=== PATIENT | male | born 1980 | race Caucasian/White ===

== ENCOUNTER 2018-07-31 05:07 | Day surgery (SDC) | payer BC ==
[~2018-07-31] VITALS: Ht 175.3 cm; Wt 90.7 kg
[~2018-07-31 05:07] MED LIST: PERCOCET 10/3251 TA1 PO
[2018-07-31 06:14] VITALS: BP 127/93; Ht 175.3 cm; Wt 90.7 kg
[2018-07-31] MEDS ORDERED: OXYCODONE-APAP1 T10 PO (08:09)
[2018-07-31] MEDS ORDERED: DURICEF500 MG PO (08:09)
--- NOTE | 2018-07-31 10:27 | OP ---
PATIENT NAME: MARIAH PAZ MEDICAL RECORD: [id number] :78 LOCATION:[facility] AD[facility]ION DATE: SURGEON: ELIJAH RUTH DO DATE OF OPERATION: 07/31/2018 PROCEDURE PERFORMED: Right thumb radial collateral ligament repair. PREOPERATIVE DIAGNOSIS: Right thumb radial collateral ligament rupture. POSTOPERATIVE DIAGNOSIS: Right thumb radial collateral ligament rupture. INDICATIONS: Mr. Paz is a right-hand dominant 38-year-old male who sustained an injury to his right thumb months ago. He had problems with pain with it and started to notice a deformity. It was subluxing laterally and was seen. MRI was done and it was noted to have a radial collateral ligament rupture. This, due to the fact of the chronicity of this injury and he was not splinted right away as these usually heal, being treated nonoperatively in a thumb spica, but due to the fact it had been months ago, it did not scar down correctly. I informed him that due to that fact he probably needed a repair. He was aware of that and aware of the risks including damage to the radial sensory nerve in the area, need for further surgery, and re-rupture, infection and bleeding as well. He was okay with those risks and started to dealing with it and wanted something done surgically. 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 It was affecting his activities of daily living. He signed a consent. SURGEON: Elijah Ruht DO DESCRIPTION OF PROCEDURE: The patient was taken to the operative suite, laid in the supine position. The right upper extremity was prepped and draped in sterile fashion. Timeout was performed, everyone was in agreeance with the correct site, side, patient and procedure. DESCRIPTION OF PROCEDURE: The patient received 2 grams Ancef preoperatively. Once time-out was performed, the right upper extremity was exsanguinated with an Esmarch and tourniquet was inflated to 250 mmHg and was up for 27 minutes. Once the tourniquet had been inflated, the Esmarch was removed. A curvilinear incision was made on the dorsal radial side of the thumb. Careful incision was made over the trang and careful dissection was made down to the adductor aponeurosis. The radial sensory nerve was encountered and then retracted carefully. The adductor aponeurosis was incised with a knife and then the radial collateral ligament was encountered on the metacarpal side where the rupture was. The bone was then exposed at the distal aspect of the metacarpal, just proximal to the joint. A 1-0 JuggerKnot suture anchor was used, put into the bone and with 2-0 sutures on it and the sutures were ran through the radial collateral ligament and secured down to the bone thus making a very good repair. This was tested with stress on it and did not show any laxity with testing. The sutures were then cut and the adductor aponeurosis was closed with 4-0 Ethibond in an inverted interrupted fashion. The skin was then closed with 5-0 Monocryl in inverted interrupted fashion. Steri-Strips were placed on that. The tourniquet was then let down 27 minutes and the site was injected with 0.5% Marcaine 5 mL around the site. An Adaptic, 4 x 4, Webril was then placed on the thumb and the wrist and the hand and a thumb spica splint was placed on the patient secured in place with a 4-inch Kedar wrap. The patient was awakened and taken to recovery room in stable condition. OPERATIVE REPORT [id number] MARIAH PAZ COMPLICATIONS: None. GARLAND MAKER: None. BLOOD LOSS: Minimal. TRANSINT:[id number] Voice Confirmation ID: [id number] DOCUMENT ID: [id number] ELIJAH RUTH DO at 1027 CC: [id number] DICTATION DATE: 07/31/18813 DUPLICATING MACHINE OPERATOR: 07/31/[address] [facility] 07/31/18 [place] [id number] [place] [address]
== END 2018-07-31 09:52 | disposition home or self-care (01) ==
LOC: D.OPS 05:07 → D.PAN 07:00 → D.OPS 07:30 → D.PAN 07:30 → D.OPS 09:52
DX: S53.21XA Traumatic rupture of right radial collateral ligament, initial encounter (principal); X58.XXXA Exposure to other specified factors, initial encounter

== ENCOUNTER → 2018-09-29 13:02 | Outpatient (CLI) | payer BC ==
[2018-07-31 06:14] VITALS: BMI 29.6
[~2018-09-29 13:02] MED LIST changes: +DURICEF500 MG PO; +OXYCODONE-APAP1 T10 PO
== END | disposition home or self-care (01) ==
LOC: D.RAD 13:02
PROVIDERS: ATTEND Orthopaedic Surgery
DX: M25.512 Pain in left shoulder (principal)

== ENCOUNTER 2019-06-25 08:57 | Day surgery (SDC) | payer BC ==
[~2019-06-25] VITALS: Ht 175.3 cm; Wt 86.6 kg
[2019-06-25 10:23] VITALS: BP 126/84; Ht 175.3 cm; Wt 86.6 kg
[2019-06-25] MEDS ORDERED: PERCOCET 5-3251 TAB PO (14:22)
[2019-06-25] MEDS ORDERED: TORADOL10 MG PO (14:22)
--- NOTE | 2019-06-27 14:16 | OP ---
PATIENT NAME: MARIAH PAZ MEDICAL RECORD: [id number] :79 LOCATION:[facility] AD[facility]ION DATE: SURGEON: SHEMAR RUTH DO DATE OF OPERATION: 06/25/2019 PROCEDURE PERFORMED: Left shoulder arthroscopy with subacromial decompression, distal clavicle excision, labral debridement, and biceps tenodesis. PREOPERATIVE DIAGNOSES: Left shoulder pain, subacromial impingement, acromioclavicular joint arthritis, and SLAP tear. POSTOPERATIVE DIAGNOSES: Left shoulder pain, subacromial impingement, acromioclavicular joint arthritis, and SLAP tear. INDICATIONS: Mr. Paz is a 39-year-old male who has had left shoulder pain for quite some time. He got an MR arthrogram, which showed a SLAP tear as well as acromioclavicular joint arthritis and subacromial impingement. He is aware of the risks including infection, bleeding, damage to nerves or vessels, continued pain, loss of motion of the shoulder. He wants something to be done as he was tired of dealing with the pain. He signed the consent. SURGEON: Shemar Ruth DO DESCRIPTION OF PROCEDURE: The patient was taken to the operative suite, given a block by anesthesia in the preoperative area, given 2 grams Ancef and 100 mg clindamycin. He was laid in the right lateral decubitus position with the left shoulder up. The patient was sedated and LMA was placed. The left shoulder was then prepped and draped in sterile fashion. A timeout was performed and everyone was in agreement with correct side, site, patient and procedure and the procedure then began with insufflating the shoulder joint with 60 mL normal saline and the posterior portal with an 18-gauge spinal needle. This was then removed and the portal established with an 11-blade scalpel. Trocar was entered into the shoulder joint. Anterior portal was established and he was found an 11-blade scalpel and probe was brought in and the SLAP tear was seen from the 10 o'clock to 2 o'clock position and a burner was brought in and the bicep tenotomy was done at that point as well as a labral debridement, the rotator cuff was inspected and there were no tears seen in supraspinatus, infraspinatus, or subscapularis. There were no loose bodies in the joint inferiorly. Cartilage was in good shape. Subacromial space was then entered and lateral portal sites. An 11-blade scalpel and a shaver was brought in and a subacromial decompression was done with acromioplasty and the distal clavicle was removed, opening the AC joint out to approximately 7 mm. The rotator cuff was inspected on the bursal side as well. No tears were seen. Attention was then drawn to the anterior humerus where an incision was made and careful dissection was made down to the long head of the biceps tendon. This was taken out through the incision, whipstitched, and then a 2.9 JuggerKnot bicep anchor was used and the biceps tendon was whipstitched and then tied to the JuggerKnot loop and then it was tensioned down to the anterior humerus. This was then tied and cut and a free needle was used to coat the back of the tendon and this was cut and tied. The excess tendon and suture removal at that time. The site was irrigated and the incision was closed with 2-0 Vicryl interrupted fashion, 4-0 Monocryl in the skin and then covered in Dermabond. The portal sites were then closed with 4-0 Monocryl in inverted interrupted fashion. Dermabond, Telfa, and Tegaderm were placed on them. He was then awakened and taken to recovery in stable condition and put on a sling. OPERATIVE REPORT [id number] MARIAH PAZ COMPLICATIONS: None. BLOOD LOSS: Minimal. TRANSINT:[id number] Voice Confirmation ID: [id number] DOCUMENT ID: [id number] SHEMAR RUTH DO at 1416 CC: [id number] DICTATION DATE: 06/25/19 1436 MANUFACTURING TEST ENGINEER: 06/25/[address] [place] [address] 06/25/19 [id number] [place] [id number]
== END 2019-06-25 15:45 | disposition home or self-care (01) ==
LOC: D.OPS 08:57 → D.PAN 12:30 → D.OPS 13:30 → D.PAN 07-16 08:30
PROVIDERS: ATTEND Orthopaedic Surgery
DX: S43.432D Superior glenoid labrum lesion of left shoulder, subsequent encounter (principal); M25.512 Pain in left shoulder; M75.42 Impingement syndrome of left shoulder; M19.019 Primary osteoarthritis, unspecified shoulder; S83.221A Peripheral tear of medial meniscus, current injury, right knee, initial encounter; X58.XXXA Exposure to other specified factors, initial encounter

== ENCOUNTER 2019-07-16 08:40 | Day surgery (SDC) | payer BC ==
[~2019-07-16] VITALS: Ht 175.3 cm; Wt 90.7 kg
[~2019-07-16 08:40] MED LIST changes: +PERCOCET 5-3251 TAB PO; +TORADOL10 MG PO
[2019-07-16 10:36] VITALS: BP 124/87; Ht 175.3 cm; Wt 90.7 kg
[2019-07-16] MEDS ORDERED: TORADOL10 MG PO (14:13)
[2019-07-16] MEDS ORDERED: HYDROCODON-ACE1 EAC2 PO (14:13)
--- NOTE | 2019-07-17 08:52 | OP ---
PATIENT NAME: MARIAH PAZ MEDICAL RECORD: [id number] :78 LOCATION[facility] AD[facility] DATE: SURGEON: ELIJAH RUTH DO DATE OF OPERATION: 07/16/2019 PROCEDURE PERFORMED: Right knee medial meniscal repair. PREOPERATIVE DIAGNOSIS: Right knee medial meniscal tear. POSTOPERATIVE DIAGNOSIS: Right knee medial meniscal tear. INDICATIONS: Mr. Paz is a 39-year-old male who was running and slipped off a track and twisted his knee, felt a pop. He had some pain and ended up getting an MRI and it showed a posterior horn medial meniscal tear, horizontal and complex. He was informed that we could do nothing and it would make it worse and we can try to fix if it. If it was amenable to repair, we will trim it out. I told him I will try to fix best I could due to the fact that if it has trimmed it out he would have advancing arthritis in that knee and he is aware that as well as the risk of damage to nerves and vessels, need for further surgery, continued tearing of the meniscus, continued pain, locking, catching and popping and he signed a consent. SURGEON: Elijah Ruth DO DESCRIPTION OF PROCEDURE: The patient was taken to the operative suite, given 2 grams Ancef preoperatively. He was laid in supine position, given general anesthetic and LMA was placed. The right lower extremity was then prepped and draped in sterile fashion. Timeout was performed. Everyone was agreeance with correct site, side, patient, and procedure. I then injected approximately 3 mL of 0.25% Marcaine with epinephrine and anterior medial and lateral proposed portal sites. The lateral portal was then established with an 11-blade scalpel. Trocar was entered in the knee. Suprapatellar pouch inspected as well as the lateral and medial gutters. The knee was then flexed down and the medial portal was established with 18-guage spinal needle and 11-blade scalpel. Trocar was then brought in and the leg was brought to extension and valgus stressed and the tear was seen in the posterior horn of medial meniscus, it was a horizontal tear essentially through the full thickness of the meniscus. I then brought in a first jugular stitch and then 2 fast fixes repairing the meniscus and having trimmed some of it out. We got the ends together in the most peripheral portion with hopes that it would heal. We then cut all the suture and it was in a stable position when it was fixed. The ACL was inspected and seen to be in good position as well the lateral meniscus, there were no tears and the lateral cartilage was good as well. The water was then turned off and the suction turned on and the excess fluid removed from the knee. The portal sites were then closed with 4-0 Monocryl in an inverted interrupted fashion. Steri-Strips, Adaptic, 4 x 4's, ABD, Webril, Kedar wrap, BART hose stocking were then placed on the knee and placed hinged knee brace locked in extension. He was then awakened and taken to recovery in stable condition. BLOOD LOSS: Minimal. COMPLICATIONS: None. TRANSINT:[id number] Voice Confirmation ID: [id number] DOCUMENT ID: [id number] OPERATIVE REPORT [id number] MARIAH PAZ,ELIJAH Amaral DO at 0852 CC: [id number] DICTATION DATE: 07/16/19 1411 ION EXCHANGE OPERATOR: 07/16/19 2303 [facility] 07/16/19 [facility] [address] [place] [address]
== END 2019-07-16 16:00 | disposition home or self-care (01) ==
LOC: D.OPS 08:40
PROVIDERS: ATTEND Orthopaedic Surgery
DX: S83.241A Other tear of medial meniscus, current injury, right knee, initial encounter (principal); X58.XXXA Exposure to other specified factors, initial encounter; S43.432D Superior glenoid labrum lesion of left shoulder, subsequent encounter; M25.512 Pain in left shoulder; M79.644 Pain in right finger(s)

== ENCOUNTER 2020-09-13 12:16 | Day surgery (SDC) | payer BC ==
[~2020-09-13] VITALS: Ht 175.3 cm; Wt 90.9 kg
[~2020-09-13 12:16] MED LIST changes: +HYDROCODON-ACE1 EAC2 PO
[2020-09-13 14:13] VITALS: BP 114/81; Ht 175.3 cm; Wt 90.9 kg
--- NOTE | 2020-09-13 16:09 | NUR ---
DISCHARGE INSTRUCTIONS REVIEWED WITH PT AND COPY PROVIDED. ALSO PROVIDED LIST OF NSAIDS TO AVOID FOR 10-14 DAYS. PT VOICED UNDERSTANDING. IV DC'D WITH CATH TIP INTACT. PT GETTING DRESSED FOR DISCHARGE.
--- NOTE | 2020-09-13 16:14 | NUR ---
PT DISCHARGED VIA W/C, ACCOMPANIED BY THIS NURSE, TO POV WITH SPOUSE DRIVING. DC PACKET WITH PT.
--- NOTE | 2020-09-14 14:44 | OP ---
PATIENT NAME: MARIAH PAZ MEDICAL RECORD: [id number] :78 LOCATION:[facility] AD[facility]ION DATE: SURGEON: MAIRA GARCIA MD DATE OF OPERATION: 09/13/2020 PROCEDURE: Upper endoscopy. PREOPERATIVE DIAGNOSIS: Dysphagia. MEDICATION: Propofol per anesthesia. Upper endoscopy was performed. The endoscope was advanced through the mouth and advanced to the mid esophagus just distal to the upper esophageal sphincter at 18 cm from the incisors was a tight stricture. This stricture was so tight that the upper endoscope could not pass through it. Upon bringing the scope back and examining, it appeared to be ring-like in nature; therefore, a gentle biopsy was done on the edge of this upper esophageal stricture. The scope then could be passed to the mid esophagus; however, it passed to the mid esophagus with some resistance. The scope could not be passed in the mid esophagus unless with resistance and given the patient's narrow esophagus, the procedure was stopped. FINAL DIAGNOSES: Tight upper esophageal stricture at 18 cm from the incisors. This was gently biopsied. Additional mid esophageal stricture. At this point, the EGD was stopped due to inability to pass the scope safely. PLAN: Check histology results. I will order an upper esophagram on this patient to delineate the anatomy of his esophageal strictures and then make clinical decisions based on that information and have him follow up in the clinic. TRANSINT:[id number] Voice Confirmation ID: [id number] DOCUMENT ID: [id number] MAIRA GARCIA MD at 1444 CC: [id number] DICTATION DATE: 09/13/20 1536 AIR QUALITY CHEMIST: 09/14/20 0033 [facility] 09/13/[address] [address]
== END 2020-09-13 16:14 | disposition home or self-care (01) ==
LOC: D.OPS 12:16
PROVIDERS: ATTEND Internal Medicine Gastroenterology
DX: R13.10 Dysphagia, unspecified (principal); K22.2 Esophageal obstruction; Z80.0 Family history of malignant neoplasm of digestive organs

== ENCOUNTER → 2020-11-09 07:56 | Outpatient (CLI) | payer BC ==
[2020-09-13 14:13] VITALS: BMI 29.6
== END | disposition home or self-care (01) ==
LOC: D.RAD 07:56
PROVIDERS: ATTEND Family Medicine
DX: R13.10 Dysphagia, unspecified (principal)